=== PATIENT | male | born 1985 | race Caucasian/White ===

== ENCOUNTER 2019-02-27 17:35 | Emergency (ER) | payer OTHER ==
[~2019-02-27] VITALS: Ht 172.7 cm; Wt 73.9 kg
[2019-02-27] MEDS ORDERED: NAPROXEN500 MG PO (21:57)
[2019-02-27] MEDS ORDERED: SKELAXIN800 MG PO (21:57)
== END 2019-02-27 22:13 | disposition home or self-care (01) ==
LOC: ER 17:35
DX: S20.211A Contusion of right front wall of thorax, initial encounter (principal); W22.8XXA Striking against or struck by other objects, initial encounter; Y93.89 Activity, other specified; Y92.89 Other specified places as the place of occurrence of the external cause; Y99.8 Other external cause status